=== PATIENT | male | born 1960 | race Caucasian/White ===

== ENCOUNTER → 2016-12-03 | Outpatient (CLI) | payer BC ==
[~2016-12-03] MED LIST: ASCA500 PO; ASPCH81 PO; BYTI10 SQ; EZET10TA63 PO; GLC500 PO; GLC850 PO; LISI-461 PO; METO50TA7 PO; MULT-506 PO; OMEG10007 PO; OXYC-57 PO; RANI300T2 PO; SERT-234 PO; SIMV80TA2 PO
[2016-12-03 09:52] LABS: ESTIMATED AVERAGE GLUCOSE 140 mg/dl; HA1C FLAG Normal (Normal)
[2016-12-03 10:05] LABS: ALT/SGPT 46 U/L (12-78); AST/SGOT 23 U/L (15-37); BLOOD UREA NITROGEN 15 mg/dl (7-18); BUN/CREATININE RATIO 13.7 (10-20); CALCIUM 9.1 mg/dl (8.5-10.1); CARBON DIOXIDE 31 mmol/L (21-32); CHLORIDE 107 mmol/L (98-107); GLUCOSE 141 mg/dl (70-99); POTASSIUM 4.3 mmol/L (3.5-5.1); SODIUM 141 mmol/L (136-145)
[2016-12-03 10:10] LABS: CHOLESTEROL 111 mg/dl (0-200); CHOLESTEROL/HDL RATIO 2.3; HDL CHOLESTEROL 49 mg/dl; LDL CHOLESTEROL CALCULATED 52 mg/dl; TRIGLYCERIDES 51 mg/dl (0-150); VERY LOW DENSITY LIPOPROT CALC 10 mg/dl
== END | disposition home or self-care (01) ==
LOC: C.LAB 07:40
DX: I10 Essential (primary) hypertension (principal); E78.5 Hyperlipidemia, unspecified

== ENCOUNTER → 2017-06-13 | Outpatient (CLI) | payer BC ==
[2017-06-13 12:24] LABS: ESTIMATED AVERAGE GLUCOSE 131 mg/dl; HA1C FLAG Normal (Normal)
[2017-06-13 12:45] LABS: ALT/SGPT 46 U/L (12-78); AST/SGOT 30 U/L (15-37); BLOOD UREA NITROGEN 15 mg/dl (7-18); BUN/CREATININE RATIO 13.4 (10-20); CALCIUM 8.8 mg/dl (8.5-10.1); CARBON DIOXIDE 29 mmol/L (21-32); CHLORIDE 107 mmol/L (98-107); CREATININE 1.11 mg/dl (0.60-1.40); GLUCOSE 138 mg/dl (70-99); POTASSIUM 4.3 mmol/L (3.5-5.1); SODIUM 141 mmol/L (136-145)
== END | disposition home or self-care (01) ==
LOC: C.RAD 10:52
DX: E11.9 Type 2 diabetes mellitus without complications (principal); I10 Essential (primary) hypertension; E78.5 Hyperlipidemia, unspecified

== ENCOUNTER → 2017-12-18 | Outpatient (CLI) | payer OTHER ==
[~2017-12-18] MED LIST changes: -METO50TA7 PO; +METO50TA8 PO
[2017-12-18 13:14] LABS: BASO % 0.3 %; BASO ABS # 0.02 K/uL (0-0.2); EOS % 4.1 %; EOS ABS # 0.25 K/uL (0-0.5); HEMATOCRIT 43.9 % (42-52); HEMOGLOBIN 14.6 g/dL (14.0-18.0); IG# 0.01 K/uL (0.00-0.02); LYMPH % 31.2 %; LYMPH ABS # 1.89 K/uL (1.2-3.4); MEAN CELL VOLUME 96.3 fL (80-100); MEAN CORPUSCULAR HGB CONC 33.3 g/dl (32-36); MEAN PLATELET VOLUME 11.7 fL (7.4-10.4); MONO % 11.7 %; MONO ABS # 0.71 K/uL (0.11-0.59); NEUT % 52.5 %; NEUT ABS # 3.18 K/uL (1.4-6.5); PLATELET COUNT 208 K/uL (130-400); RED CELL DISTRIBUTION WIDTH SD 52.5 fL (36.4-46.3); WHITE BLOOD COUNT 6.06 K/uL (4.8-10.8)
[2017-12-18 13:48] LABS: HEMOGLOBIN A1C 6.4 % (4.5-5.6)
[2017-12-18 16:04] LABS: ALT/SGPT 44 U/L (12-78); BLOOD UREA NITROGEN 18 mg/dl (7-18); CALCIUM 9.1 mg/dl (8.5-10.1); CARBON DIOXIDE 28 mmol/L (21-32); CREATININE 1.24 mg/dl (0.60-1.40); GLUCOSE 125 mg/dl (70-99); POTASSIUM 4.2 mmol/L (3.5-5.1); SODIUM 140 mmol/L (136-145)
[2017-12-18 16:06] LABS: AST/SGOT 33 U/L (15-37)
== END | disposition home or self-care (01) ==
LOC: C.LAB 11:39
DX: I10 Essential (primary) hypertension (principal); E78.5 Hyperlipidemia, unspecified; R73.02 Impaired glucose tolerance (oral)

== ENCOUNTER → 2018-01-14 | Outpatient (CLI) | payer OTHER | END | disposition home or self-care (01) | LOC: C.CPL 09:36 | DX: R00.1 Bradycardia, unspecified (principal) ==